=== PATIENT | male | born 1970 | race Caucasian/White ===

== ENCOUNTER 2022-01-05 00:53 | Inpatient (IN) ==
[2022-01-05] MEDS ORDERED: ASPIRIN CHEW 324 MG PO STA (01:11)
[2022-01-05] MEDS ORDERED: NITROGLYCERIN SL 0.4 MG/TAB TAB SL PRN ×2 (01:11→03:18)
[2022-01-05] MEDS ORDERED: ONDANSETRON INJ 2 MG/ML 2 ML VIAL IV STA (01:11)
--- NOTE | 2022-01-05 01:15 | Emergency Department Note ---
History of Present Illness General Chief complaint: Chest Pain Stated complaint: CHEST PAIN, PAIN IN ARMS AND NECK Time Seen by Provider: 01/05/22 01:04 History of Present Illness Maximum Pain Intensity: 7 This 51-year-old that smokes presents to the ER complaining of chest pain that became nauseous and diaphoretic with the pain Location: Chest jaw neck and arms Quality: Pressure Severity: Moderate Duration: Past few days Timing: Started few days ago Context: Symptoms became persistent today and patient came in Modifying factors: better with rest; worse with activity No prior stress test or echo. He has had SVT with ablation in the past. Nothing recently. He smokes. No leg pain or swelling. Patient denies abdominal pain, leg pain or swelling, flulike illness. Home Medications Medication Instructions Recorded Confirmed Type diphenhydramine HCl 25 mg capsule 25 mg PO DIRECTED PRN 01/05/22 01/05/22 History (Benadryl) Allergies Allergy/AdvReac Type Severity Reaction Status Date / Time pollen extracts Allergy Intermediate SNEEZING, Verified 01/05/22 01:24 CONGESTION Past Med/Surg History Medical History SVT (supraventricular tachycardia) Surgical History (Updated 01/05/22 @ 01:14 by Jihan Good PA-C) No pertinent past surgical history Social History Smoking Status: Current every day smoker Tobacco Type: Cigarettes Preferred Language: Greenlandic Feels Safe at Home: Yes Review of Systems A total of 10 systems reviewed and were otherwise negative Physical Exam Vital Signs Vital Signs - 24 hr 01/05/22 00:56 01/05/22 01:13 01/05/22 01:14 Temperature 36.8 C Temperature Source Temporal Artery Scan Pulse Rate 68 77 Pulse Rate [Apical] 68 Pulse Rhythm Regular Pulse Rhythm [Apical] Regular Pulse Strength [Apical] Normal Respiratory Rate 18 18 18 Respiratory Effort / Characteristics Non-Labored Non-Labored Spontaneous Respiratory Depth Normal Normal Respiratory Pattern Regular Regular Blood Pressure 167/109 H Blood Pressure [Right Arm] 179/112 H Blood Pressure Mean 128 Blood Pressure Mean [Right Arm] 134 Blood Pressure Position Lying Blood Pressure Position [Right Arm] Semi-fowlers Pulse Oximetry 98 97 96 Oxygen Delivery Method Room Air Room Air Room Air Oxygen Flow Rate 0 Sepsis Recent Fever Within 48 Hours No Sepsis New/Unexplained Change in Mental Status No Sepsis Action Taken by Nursing No Action Required VITALS: Vitals are noted on the nurse's note and reviewed by myself. Vital signs hypertensive GENERAL: Anxious appearing male, in no acute distress, nondiaphoretic, well- developed well-nourished. SKIN: The skin was without rashes, erythema, edema, or bruising. There is no tenting of the skin. Capillary reflex less than 2 seconds. HEAD: Normocephalic atraumatic. EARS: External auditory canals clear, EYES: Pupils equal round and reactive to light and accommodation. Conjunctivae without injection, sclerae without icterus. Extraocular movements intact. NOSE: Patent, turbinates without inflammation or discharge. MOUTH: Mucous membranes moist. Pharynx without erythema or exudate. Uvula midline. Airway patent. Tongue does not deviate. NECK: Supple without nuchal rigidity. No lymphadenopathy. No thyromegaly. Cervical spine is nontender. No JVD. HEART: Regular rate and rhythm LUNGS: Clear to auscultation bilaterally without wheezes, rales or rhonchi. No retractions or accessory muscle use. ABDOMEN: Positive bowel sounds x 4. Normal tympanic percussion. Soft, nontender, without masses or organomegaly. Christensen sign negative. No guarding or rebound tenderness. No CVA tenderness MUSCULOSKELETAL: No muscle atrophy, erythema, or edema noted. NEURO: Patient was alert and oriented to person place and time. Normal sensation to light and sharp touch. No focal neurological deficits. Course Administered Medications Nitroglycerin (Nitroglycerin Sl 0.4 Mg/Tab Tab) 0.4 mg SL UD PRN PRN Reason: Chest Pain Stop: 02/04/22 01:10 Last Admin: 01/05/22 01:24 Dose: 0.4 mg Documented by: [id number] Discontinued Medications Aspirin (Aspirin Chew 324 Mg) 324 mg PO NOW STA Stop: 01/05/22 01:12 Last Admin: 01/05/22 01:20 Dose: 324 mg Documented by: [id number] Nitroglycerin (Nitroglycerin Sl 0.4 Mg/Tab Tab) 0.4 mg SL NOW STA Stop: 01/05/22 01:37 Last Admin: 01/05/22 01:42 Dose: 0.4 mg Documented by: [id number] Nitroglycerin (Nitroglycerin 2% Ointment 30gm Tube) 1 inch EXT NOW ONE Stop: 01/05/22 02:14 Last Admin: 01/05/22 02:25 Dose: 1 inch Documented by: [id number] Ondansetron HCl (Ondansetron Inj 2 Mg/Ml 2 Ml Vial) 4 mg IV NOW STA Stop: 01/05/22 01:12 Last Admin: 01/05/22 01:21 Dose: 4 mg Documented by: [id number] Critical Care Time I have personally spent 35 minutes of critical care time in the direct management of this patient. This includes bedside care, interpretation of diagnostic studies, and testing, discussion with consultants, patient, and family members, and other required patient management activities. This 35 minutes is in excess of all separately billable procedures. Medical Decision Making Medical Records Attestation: I reviewed the patient's medical records. Home Medications Current Medication List: was personally reviewed by me Laboratory Data Attestation: I reviewed the patient's lab results. Result diagrams: 01/05/22 01:10 01/05/22 01:10 Lab Results 01/05/22 01/05/22 01/05/22 Range/Units 01:10 01:10 02:27 WBC 9.68 (4.8-10.8) K/uL RBC 4.97 (4.7-6.1) M/uL Hgb 15.2 (14.0-18.0) g/dL Hct 43.1 (42-52) % MCV 86.7 (80-100) fL MCH 30.6 (25-34) pg MCHC 35.3 (32-36) g/dL RDW Std Deviation 39.2 (36.4-46.3) fL RDW Coeff of Saige 12.4 (11.5-14.5) % Plt Count 249 (130-400) K/uL MPV 10.1 (7.4-10.4) fL Immature Gran % (Auto) 0.1 % Neut % (Auto) 53.8 % Lymph % (Auto) 29.6 % Graves % (Auto) 12.0 % Eos % (Auto) 3.9 % Baso % (Auto) 0.6 % Neut # (Auto) 5.20 (1.4-6.5) K/uL Lymph # (Auto) 2.87 (1.2-3.4) K/uL Graves # (Auto) 1.16 H (0.11-0.59) K/uL Eos # (Auto) 0.38 (0-0.5) K/uL Baso # (Auto) 0.06 (0-0.2) K/uL Immature Gran # (Auto) 0.01 (0.00-0.02) K/uL Sodium 139 (136-145) mmol/L Potassium TNP Chloride 108 H (98-107) mmol/L Carbon Dioxide 25 (21-32) mmol/L Anion Gap 6 (3-11) BUN 17 (6-23) mg/dl Creatinine 1.08 (0.6-1.4) mg/dl Est Cr Clr Drug Dosing 97.6 ml/min Est GFR ( Amer) 92.3 ml/min Est GFR (Non-Af Amer) 79.6 ml/min BUN/Creatinine Ratio 15.7 (10-20) Glucose 109 H (70-99(Fasting)) mg/dl Calcium 8.8 (8.5-10.1) mg/dl Total Bilirubin 0.7 (0.2-1.0) mg/dl AST TNP ALT 30 (7-52) U/L Alkaline Phosphatase 53 (34-104) U/L Troponin I High Sens 216.3 H* (0-20) pg/ml Total Protein 7.3 (6.0-8.3) gm/dl Albumin 4.3 (3.4-5.0) gm/dl Globulin 3.0 (2.5-4.0) gm/dl Albumin/Globulin Ratio 1.4 (0.9-2) Lipase 49 (11-82) U/L SARS-CoV-2, RNA, NAAT NEGATIVE (NEGATIVE) Imaging Data Attestation: I personally reviewed and interpreted this imaging study as follows: MDM Narrative Prior records/ancillary studies reviewed. Triage Nursing notes reviewed. Additional history obtained from nursing. The patient's history was concerning for chest pain. Differential diagnosis: Etiologies such as cardiac ischemia, aortic dissection, pulmonary embolism, pneumonia, pneumothorax, musculoskeletal, infections, pericarditis, myocarditis, esophageal rupture, gastrointestinal, as well as others were entertained. Physical examination: As above. ER treatment provided: An order was placed for continuous cardiac monitoring. The monitor shows a rate of 60-100 with a sinus rhythm. Aspirin nitro Zofran heparin, Nitropaste On reassessment the patient felt better. Diagnostic interpretation by me: The electrocardiogram was ordered for chest pain EKG: Normal sinus, T wave inversion in aVL, rate of 71. Impression normal sinus rhythm with T wave inversion aVL interpreted by myself I think arrhythmia is unlikely. EKG shows normal sinus rhythm with no interval abnormalities such as QT prolongation or WPW. There are no findings to suggest Brugada syndrome. Cardiac monitoring in the emergency department reveals no tachycardic or bradycardic dysrhythmia. Hypertrophic cardiomyopathy was considered but there are no clear historical elements pointing toward this. EKG is not suggestive. The QRS voltage is not extremely large and there are no suggestive Q waves. The labs revealed + trop, repeat ordered Imaging studies: Chest x-ray with no acute consolidation, pneumothorax or free air per my interpretation HEART SCORE: Hx: high/mod/low suspicion: 2 ECG: ST depression/nonspecific changes/normal: 1 Age: Greater than 65/45-64/less than 45: 1 Risk factors: (Hypertension, hyperlipidemia, diabetes, coronary disease, tobacco use, cocaine use): 1 Troponin: Greater than 2 times normal limits/1-2 times normal limits/normal: 2 Total: 7 Consultation: A consultation was placed with the hospitalist. The case was discussed and diagnostics were reviewed. The patient was evaluated in the ER for further treatment. Exam and history seem consistent with NSTEMI. EKGs were repeated x3. No evolving ST elevation MO. Patient's had no recent trauma. No history of GI bleeding. Heparin was ordered. Patient is agreeable. Medicine was consulted. Patient was admitted to the medical service. By the evaluation outlined above emergent etiologies such as aortic dissection, pulmonary embolism, pneumonia, pneumothorax, infections, pericarditis, myocarditis, gastrointestinal, as well as others were deemed relatively unlikely. The pt informed about the findings as listed above. All questions were answered and pleased with the treatment. The chart was completed utilizing [employer] voice recognition software. Grammatical errors, random word insertions, pronoun errors, and incomplete sentences are an occassional consequence of this system due to software limitations, ambient noise, and hardware issues. Any formal questions or concerns about the content, text, or information contained within the body of this dictation should be directly addressed to the physician retail event assistant for clarification. Impression & Plan Non-ST elevation MO (NSTEMI) Discharge Plan Visit Data Chief Complaint: Chest Pain Stated Complaint: CHEST PAIN, PAIN IN ARMS AND NECK ED Provider: Nicole Marino ED Midlevel Provider: Jihan Good Discharge Problem: Non-ST elevation MO (NSTEMI) Patient Disposition: Admitted As Inpatient Condition: Good Forms Stand Alone Forms: Quid Prescriptions Prescriptions: No Action diphenhydramine HCl [Benadryl] 25 mg Capsule 25 mg PO DIRECTED PRN (Reason: Allergy Symptoms) RF: 0 Referrals Referrals: PCP,NO [Primary Care Provider] -
[2022-01-05 01:25] LABS: Basophils # (auto) 0.06 K/uL (0-0.2); Basophils % (auto) 0.6 %; Eosinophils # (auto) 0.38 K/uL (0-0.5); Eosinophils % (auto) 3.9 %; Hematocrit (blood only) 43.1 % (42-52); Hemoglobin 15.2 g/dL (14.0-18.0); Immature Granulocytes # (auto) 0.01 K/uL (0.00-0.02); Immature Granulocytes % (auto) 0.1 %; Lymphocytes # (auto) 2.87 K/uL (1.2-3.4); Lymphocytes % (auto) 29.6 %; Mean Corpuscular Hemoglobin 30.6 pg (25-34); Mean Corpuscular Hgb Conc 35.3 g/dL (32-36); Mean Corpuscular Volume 86.7 fL (80-100); Mean Platelet Volume 10.1 fL (7.4-10.4); Monocytes # (auto) 1.16 K/uL (0.11-0.59); Neutrophils % (auto) 53.8 %; Platelet Count 249 K/uL (130-400); RDW Coefficient of Variation 12.4 % (11.5-14.5); RDW Standard Deviation 39.2 fL (36.4-46.3); Red Blood Count 4.97 M/uL (4.7-6.1); White Blood Count 9.68 K/uL (4.8-10.8)
[2022-01-05] MEDS ORDERED: NITROGLYCERIN SL 0.4 MG/TAB TAB SL STA (01:36)
[2022-01-05 02:07] LABS: Troponin I High Sensitivity 216.3 pg/ml (0-20)
[2022-01-05] MEDS ORDERED: NITROGLYCERIN 2% OINTMENT 30GM TUBE EXT ONE (02:13)
[2022-01-05 02:18] LABS: Alanine Aminotransferase 30 U/L (7-52); Albumin Globulin Ratio 1.4 (0.9-2); Albumin Level 4.3 gm/dl (3.4-5.0); Alkaline Phosphatase 53 U/L (34-104); Anion Gap 6 (3-11); BUN Creatinine Ratio 15.7 (10-20); Bilirubin,Total 0.7 mg/dl (0.2-1.0); Blood Urea Nitrogen 17 mg/dl (6-23); Calcium 8.8 mg/dl (8.5-10.1); Carbon Dioxide 25 mmol/L (21-32); Chloride 108 mmol/L (98-107); Creatinine Clr Calc Pharmacy 97.6 ml/min; Est GFR (African American) 92.3 ml/min; Est GFR (Non-African American) 79.6 ml/min; Glucose 109 mg/dl (70-99(Fasting)); Lipase 49 U/L (11-82); Sodium 139 mmol/L (136-145); Total Protein 7.3 gm/dl (6.0-8.3)
[2022-01-05] MEDS ORDERED: Heparin IV Adult Wt-Based Standard WITH Bolus Protocol IV STA (02:26)
[2022-01-05] MEDS ORDERED: METOPROLOL TARTRATE 25 MG TAB PO STA (02:37)
[2022-01-05] MEDS ORDERED: HEPARIN SOD (PORCINE) 1000 UNIT/ML IV ONE (02:41)
[2022-01-05] MEDS ORDERED: HEPARIN SODIUM/DEXTROSE 25,000 UNITS/500 ML BAG IV SCH (02:45)
[2022-01-05 02:59] LABS: INR 1.1 (0.9-1.1); Partial Thromboplastin Ratio 0.9; Partial Thromboplastin Time 24.7 Seconds (21.0-31.0); Prothrombin Time 11.2 Seconds (9.0-12.0)
[2022-01-05 03:00] LABS: Magnesium 2.3 mg/dl (1.7-2.4); Potassium 3.6 mmol/L (3.5-5.1)
[2022-01-05] MEDS ORDERED: LORazepam 2 MG/1 ML VIAL IV STA (03:09)
[2022-01-05] MEDS ORDERED: SIMVASTATIN 20 MG TAB PO STA (03:10)
--- NOTE | 2022-01-05 03:10 | History & Physical Report ---
Date of Service January 05, 2022 Assessment & Plan (1) Non-ST elevation IA (NSTEMI): Plan: Hypertension secondary to above, anxiety contributory SVT status post ablation Hyperlipidemia, medication noncompliance Ongoing tobacco abuse PCU Aspirin, statin for CAD prevention Initiate beta-lizet for NSTEMI and BP control Continue IV heparin initiated at the ER Anxiolytic as needed TTE, cardiology consult Re: NSTEMI N.p.o. until patient seen by Cardiology in a.m. in anticipation of procedure Trend troponin Update lipid profile Nicotine patch as needed DVT prophylaxis. IV heparin Full code Text document was generated using [employer] voice recognition software. It may contain grammatical or spelling errors. Kindly contact undersigned for clarification of any documentation item in question. History of Present Illness Chief Complaint: Chest pain Primary Care Provider: NO PCP (Patient is a former patient at [facility] but is not interested in returning to clinic.) History obtained from patient and records. Medical history significant for SVT status post ablation, hyperlipidemia, anxie ty disorder, ongoing tobacco abuse. 5 days history of intermittent achy chest pain with radiation to be neck, both arms, shoulder without other symptoms. Episode possibly similar to SVT attack which resulted in ablation at [facility] 5 years ago. Patient first noticed chest discomfort while riding his motorcycle 4 days ago. Discomfort went away after patient slept. Patient was chest pain-free for about 2 days before discomfort recurred. Patient admits to more stress than usual at work and at home. Patient has not been compliant with aspirin and statin medications because he did not have any doctor to refill prescription. Chest pain improved with aspirin and nitroglycerin administration at the ER. IV heparin initiated at the ER. 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 Allergies Allergy/AdvReac Type Severity Reaction Status Date / Time pollen extracts Allergy Intermediate SNEEZING, Verified 01/05/22 01:24 CONGESTION Home Medications Medication Instructions Recorded Confirmed Type diphenhydramine HCl 25 mg capsule 25 mg PO DIRECTED PRN 01/05/22 01/05/22 History (Benadryl) Past Med/Surg History Medical History SVT (supraventricular tachycardia) Surgical History (Updated 01/05/22 @ 01:14 by Jihan Good PA-C) No pertinent past surgical history Social History Smoking Status: Current every day smoker Tobacco Type: Cigarettes Second Hand Exposure: Yes; Do You Dip or Chew Tobacco: No; Hx Alcohol Use: No Hx Substance Use: No Preferred Language: Thai Vegetable Washer Required: No Beliefs That Will Affect Care: None Current Living Situation: Family Other Information That Helps Us Care for You: No Feels Safe at Home: Yes Assistive Devices: None Review of Systems Review of Systems: As per HPI, all other systems reviewed and negative Physical Exam Physical Exam: GENERAL: uncomfortable, anxious, no respiratory distress SKIN: Normal color, warm HEENT: [place] palpebral conjunctivae, no ptosis, dry buccal mucosa NECK : Supple, no tenderness CHEST : CTA, no tenderness HEART : RRR, no obvious murmurs ABDOMEN: Some distention, nontender EXTREMITIES : No LE swelling/tenderness, no other conspicuous deformities noted NEUROLOGIC : Coherent, no facial asymmetry, no other gross focality Results & Data Results & Data ([facility]) Vital Signs (Past 12 Hours) Vital Signs Temp Pulse Pulse Resp BP BP Pulse Ox 01/05/22 03:07 84 16 160/108 H 98 01/05/22 01:14 68 18 179/112 H 96 01/05/22 01:13 77 18 97 01/05/22 00:56 36.8 C 68 18 167/109 H 98 Laboratory Results Laboratory Results WBC 9.68 K/uL (4.8-10.8) 01/05/22 01:10 RBC 4.97 M/uL (4.7-6.1) 01/05/22 01:10 Hgb 15.2 g/dL (14.0-18.0) 01/05/22 01:10 Hct 43.1 % (42-52) 01/05/22 01:10 MCV 86.7 fL (80-100) 01/05/22 01:10 MCH 30.6 pg (25-34) 01/05/22 01:10 MCHC 35.3 g/dL (32-36) 01/05/22 01:10 RDW Std Deviation 39.2 fL (36.4-46.3) 01/05/22 01:10 RDW Coeff of Saige 12.4 % (11.5-14.5) 01/05/22 01:10 Plt Count 249 K/uL (130-400) 01/05/22 01:10 MPV 10.1 fL (7.4-10.4) 01/05/22 01:10 Immature Gran % (Auto) 0.1 % 01/05/22 01:10 Neut % (Auto) 53.8 % 01/05/22 01:10 Lymph % (Auto) 29.6 % 01/05/22 01:10 Ida % (Auto) 12.0 % 01/05/22 01:10 Eos % (Auto) 3.9 % 01/05/22 01:10 Baso % (Auto) 0.6 % 01/05/22 01:10 Neut # (Auto) 5.20 K/uL (1.4-6.5) 01/05/22 01:10 Lymph # (Auto) 2.87 K/uL (1.2-3.4) 01/05/22 01:10 Ida # (Auto) 1.16 K/uL (0.11-0.59) H 01/05/22 01:10 Eos # (Auto) 0.38 K/uL (0-0.5) 01/05/22 01:10 Baso # (Auto) 0.06 K/uL (0-0.2) 01/05/22 01:10 Immature Gran # (Auto) 0.01 K/uL (0.00-0.02) 01/05/22 01:10 PT 11.2 Seconds (9.0-12.0) 01/05/22 02:23 INR 1.1 (0.9-1.1) 01/05/22 02:23 APTT 24.7 Seconds (21.0-31.0) 01/05/22 02:23 PTT Ratio 0.9 01/05/22 02:23 Sodium 139 mmol/L (136-145) 01/05/22 01:10 Potassium 3.6 mmol/L (3.5-5.1) 01/05/22 02:23 Chloride 108 mmol/L (98-107) H 01/05/22 01:10 Carbon Dioxide 25 mmol/L (21-32) 01/05/22 01:10 Anion Gap 6 (3-11) 01/05/22 01:10 BUN 17 mg/dl (6-23) 01/05/22 01:10 Creatinine 1.08 mg/dl (0.6-1.4) 01/05/22 01:10 Est Cr Clr Drug Dosing 97.6 ml/min 01/05/22 01:10 Est GFR ( Amer) 92.3 ml/min 01/05/22 01:10 Est GFR (Non-Af Amer) 79.6 ml/min 01/05/22 01:10 BUN/Creatinine Ratio 15.7 (10-20) 01/05/22 01:10 Glucose 109 mg/dl (70-99(Fasting)) H 01/05/22 01:10 Calcium 8.8 mg/dl (8.5-10.1) 01/05/22 01:10 Magnesium 2.3 mg/dl (1.7-2.4) 01/05/22 02:23 Total Bilirubin 0.7 mg/dl (0.2-1.0) 01/05/22 01:10 AST 21 U/L (13-39) 01/05/22 02:23 ALT 30 U/L (7-52) 01/05/22 01:10 Alkaline Phosphatase 53 U/L (34-104) 01/05/22 01:10 Troponin I High Sens 216.3 pg/ml (0-20) H* 01/05/22 01:10 Total Protein 7.3 gm/dl (6.0-8.3) 01/05/22 01:10 Albumin 4.3 gm/dl (3.4-5.0) 01/05/22 01:10 Globulin 3.0 gm/dl (2.5-4.0) 01/05/22 01:10 Albumin/Globulin Ratio 1.4 (0.9-2) 01/05/22 01:10 Lipase 49 U/L (11-82) 01/05/22 01:10 SARS-CoV-2, RNA, NAAT NEGATIVE (NEGATIVE) 01/05/22 02:27 Diagnostic Findings Chest x-ray : No congestion, elevated right hemidiaphragm EKG as per my interpretation : Rate 65, NSR, normal axis, no ischemia
[2022-01-05 03:12] LABS: Troponin I High Sensitivity 410.9 pg/ml (0-20)
[2022-01-05] MEDS ORDERED: traMADol HCL 50 MG TABLET PO STA (03:12)
[2022-01-05] MEDS ORDERED: ACETAMINOPHEN 325 MG TAB PO PRN (03:18)
[2022-01-05] MEDS ORDERED: LACTATED RINGER'S 1,000 ML IV ONE (03:18)
[2022-01-05] MEDS ORDERED: MoRPHine SULFATE 4 MG/ML 1 ML CARP\\VIAL IV PRN (03:18)
[2022-01-05] MEDS ORDERED: LORazepam 2 MG/1 ML VIAL IV PRN (03:18)
[2022-01-05] MEDS ORDERED: traMADol HCL 50 MG TABLET PO PRN (03:18)
--- NOTE | 2022-01-05 06:43 | XRay Report ---
XR chest 1V portable CLINICAL HISTORY: Atypical chest pain. COMPARISON STUDY: No previous studies for comparison. FINDINGS: Lung volumes are normal. Lungs are clear. There is no pneumothorax or pleural effusion. Car diac size is normal. Mediastinal contours are normal. There is no evidence for pulmonary edema. IMPRESSION: No acute cardiopulmonary findings. ACT 112: Negative or not required by law. Electronically signed by: Tho Victoria M.D. 01/05/2022 6:41 AM
--- NOTE | 2022-01-05 08:43 | Cardiology Consultation ---
Date of Consultation January 05, 2022 Assessment & Plan (1) Chest pain: (2) Non-ST elevation AK (NSTEMI): (3) Tobacco abuse: (4) Dyslipidemia: Patient with waxing and waning chest pain over the last 5 days with radiation down both arms and to neck, concerning for unstable angina. Risk factors for underlying CAD including family history of CAD, chronic tobacco abuse, and dyslipidemia (not treated). Cardiac enzymes (HS troponin) minimally elevated on arrival. Chest pain resolved with nitro. Echo results are pending. Options discussed in detail including ongoing medical management, stress testing, vs diagnostic cardiac catheterization. Patient is concerned with recurrent issues over several days and wishes for definitive diagnosis. Risks/benefits discussed regarding diagnostic cardiac cath. He is willing to proceed. Remain NPO. Continue IV heparin for now. Cath to be arranged later today with Dr. Preciado. Continue ASA, statin, metoprolol, nitro. Patient to report any new or worsening symptoms. Further recommendations pending review of echo and cath results. Case discussed with Dr. Preciado. Supervising Physician Co-Signing Physician Notes I have seen and examined the patient. I discussed the case with Ms. Ocasio and reviewed the medical record. I agree the best option at this point is to proceed with a cardiac catheterization. I explained the risk, benefit and intent of the procedure to the patient and he is willing to proceed. History of Present Illness Reason for Consultation: Chest pain; Elevated troponin Requesting Physician: Dr. Kim Attending Physician: Dr. Preciado History of Present Illness Patient is a 51 year old male with history of chronic tobacco abuse, dyslipidemia (previously on simvastatin, but has not taken in 1 year), history of SVT s/p ablation approx 5 years ago at [facility]. He denies history of AK, CHF, valvular disease. He began to have waxing/waning chest pain over the last few days. Started on Monday while riding his motorcycle. Thought his arms were 'fatigued' from a long ride. [place] substernal chest tightness/ache radiating into his arms. Symptoms lasted most of Monday evening. He noted pain radiating into his left side of his jaw as well. Symptoms returned again on Monday and Monday, each day lasting several hours. He had episode of nausea with the CP on Monday but no other symptoms. No aggravating or alleviating factors that he could figure or attribute his symptoms. No palpitations. No fever, cough, chills. He reportedly felt well on Monday. Then on Monday, symptoms returned, more severe lasting approx 15 hours. He came to the ER for evaluation. EKG without acute changes. Symptoms resolved with SL Nitro and nitro patch. Initial HS troponin around 200, increasing to 400, and then nearly 3,000 this morning. He has been started on IV heparin, ASA, statin, nitro patch, beta lizet. At time of consult, patient resting in bed comfortably. No recurrent chest pain overnight. He notes ongoing headache this morning since nitro placement. No SOB, no diaphoresis. B/L arm heaviness improved. Allergies Allergy/AdvReac Type Severity Reaction Status Date / Time pollen extracts Allergy Intermediate SNEEZING, Verified 01/05/22 01:24 CONGESTION Home Medications Medication Instructions Recorded Confirmed Type diphenhydramine HCl 25 mg capsule 25 mg PO DIRECTED PRN 01/05/22 01/05/22 History (Benadryl) Patient History Medical History SVT (supraventricular tachycardia) Surgical History (Updated 01/05/22 @ 01:14 by Jihan Good PA-C) No pertinent past surgical history Social History Smoking Status: Current every day smoker Tobacco Type: Cigarettes Second Hand Exposure: Yes; Do You Dip or Chew Tobacco: No; Hx Alcohol Use: No Hx Substance Use: No Preferred Language: Slovenian 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: No Beliefs That Will Affect Care: None marital status: Single Current Living Situation: Family Other Information That Helps Us Care for You: No Feels Safe at Home: Yes Assistive Devices: None Review of Systems Review of Systems: All systems reviewed & are unremarkable except as noted in HPI & below Physical Exam Constitutional: WD/WN, vitals as above Neck: trachea midline, no thyromegaly Respiratory: normal respiratory effort, lungs clear to auscultation Cardiovascular: RRR, no murmur, no edema Gastrointestinal (Abdomen): normal bowel sounds, soft, nontender, no hepatosplenomegaly Skin: no rashes, warm and dry Psychiatric: A+Ox3, euthymic affect Results & Data ([facility]) Vital Signs (Past 12 Hours) Vital Signs Temp Pulse Pulse Resp BP BP Pulse Ox 01/05/22 05:00 69 21 01/05/22 04:30 64 10 L 01/05/22 04:00 59 L 17 142/77 H 01/05/22 03:50 60 16 157/94 H 95 01/05/22 03:48 67 13 157/84 H 01/05/22 03:30 60 21 131/85 01/05/22 03:16 69 22 126/79 01/05/22 03:07 84 16 160/108 H 98 01/05/22 03:00 78 13 01/05/22 02:30 63 17 01/05/22 02:00 67 19 01/05/22 01:30 70 20 01/05/22 01:29 71 19 160/108 H 01/05/22 01:14 68 18 179/112 H 96 01/05/22 01:13 77 18 179/112 H 97 01/05/22 00:56 36.8 C 68 18 167/109 H 98 Pulse Ox 01/05/22 05:00 01/05/22 04:30 01/05/22 04:00 01/05/22 03:50 95 01/05/22 03:48 01/05/22 03:30 01/05/22 03:16 01/05/22 03:07 01/05/22 03:00 01/05/22 02:30 01/05/22 02:00 01/05/22 01:30 01/05/22 01:29 01/05/22 01:14 01/05/22 01:13 01/05/22 00:56 Laboratory Results 01/05/22 01/05/22 01/05/22 Range/Units 02:27 02:23 02:23 WBC (4.8-10.8) K/uL RBC (4.7-6.1) M/uL Hgb (14.0-18.0) g/dL Hct (42-52) % MCV (80-100) fL MCH (25-34) pg MCHC (32-36) g/dL RDW Std Deviation (36.4-46.3) fL RDW Coeff of Saige (11.5-14.5) % Plt Count (130-400) K/uL MPV (7.4-10.4) fL Immature Gran % (Auto) % Neut % (Auto) % Lymph % (Auto) % [place]ether % (Auto) % Eos % (Auto) % Baso % (Auto) % Neut # (Auto) (1.4-6.5) K/uL Lymph # (Auto) (1.2-3.4) K/uL Meriwether # (Auto) (0.11-0.59) K/uL Eos # (Auto) (0-0.5) K/uL Baso # (Auto) (0-0.2) K/uL Immature Gran # (Auto) (0.00-0.02) K/uL PT 11.2 (9.0-12.0) Seconds INR 1.1 (0.9-1.1) APTT 24.7 (21.0-31.0) Seconds PTT Ratio 0.9 Sodium (136-145) mmol/L Potassium 3.6 Chloride (98-107) mmol/L Carbon Dioxide (21-32) mmol/L Anion Gap (3-11) BUN (6-23) mg/dl Creatinine (0.6-1.4) mg/dl Est Cr Clr Drug Dosing ml/min Est GFR ( Amer) ml/min Est GFR (Non-Af Amer) ml/min BUN/Creatinine Ratio (10-20) Glucose (70-99(Fasting)) mg/dl Calcium (8.5-10.1) mg/dl Magnesium 2.3 (1.7-2.4) mg/dl Total Bilirubin (0.2-1.0) mg/dl AST 21 ALT (7-52) U/L Alkaline Phosphatase (34-104) U/L Troponin I High Sens 410.9 H* D (0-20) pg/ml Total Protein (6.0-8.3) gm/dl Albumin (3.4-5.0) gm/dl Globulin (2.5-4.0) gm/dl Albumin/Globulin Ratio (0.9-2) Lipase (11-82) U/L SARS-CoV-2, RNA, NAAT NEGATIVE (NEGATIVE) 01/05/22 01/05/22 Range/Units 01:10 01:10 WBC 9.68 (4.8-10.8) K/uL RBC 4.97 (4.7-6.1) M/uL Hgb 15.2 (14.0-18.0) g/dL Hct 43.1 (42-52) % MCV 86.7 (80-100) fL MCH 30.6 (25-34) pg MCHC 35.3 (32-36) g/dL RDW Std Deviation 39.2 (36.4-46.3) fL RDW Coeff of Saige 12.4 (11.5-14.5) % Plt Count 249 (130-400) K/uL MPV 10.1 (7.4-10.4) fL Immature Gran % (Auto) 0.1 % Neut % (Auto) 53.8 % Lymph % (Auto) 29.6 % [place] % (Auto) 12.0 % Eos % (Auto) 3.9 % Baso % (Auto) 0.6 % Neut # (Auto) 5.20 (1.4-6.5) K/uL Lymph # (Auto) 2.87 (1.2-3.4) K/uL [place]ether # (Auto) 1.16 H (0.11-0.59) K/uL Eos # (Auto) 0.38 (0-0.5) K/uL Baso # (Auto) 0.06 (0-0.2) K/uL Immature Gran # (Auto) 0.01 (0.00-0.02) K/uL PT (9.0-12.0) Seconds INR (0.9-1.1) APTT (21.0-31.0) Seconds PTT Ratio Sodium 139 (136-145) mmol/L Potassium TNP Chloride 108 H (98-107) mmol/L Carbon Dioxide 25 (21-32) mmol/L Anion Gap 6 (3-11) BUN 17 (6-23) mg/dl Creatinine 1.08 (0.6-1.4) mg/dl Est Cr Clr Drug Dosing 97.6 ml/min Est GFR ( Amer) 92.3 ml/min Est GFR (Non-Af Amer) 79.6 ml/min BUN/Creatinine Ratio 15.7 (10-20) Glucose 109 H (70-99(Fasting)) mg/dl Calcium 8.8 (8.5-10.1) mg/dl Magnesium (1.7-2.4) mg/dl Total Bilirubin 0.7 (0.2-1.0) mg/dl AST TNP ALT 30 (7-52) U/L Alkaline Phosphatase 53 (34-104) U/L Troponin I High Sens 216.3 H* (0-20) pg/ml Total Protein 7.3 (6.0-8.3) gm/dl Albumin 4.3 (3.4-5.0) gm/dl Globulin 3.0 (2.5-4.0) gm/dl Albumin/Globulin Ratio 1.4 (0.9-2) Lipase 49 (11-82) U/L SARS-CoV-2, RNA, NAAT (NEGATIVE) Diagnostic Findings EKG on admission: NSR, no acute ischemic changes noted. No prior available for comparison Repeat EKG: NSR T wave inversion in AVL, otherwise no acute changes Chest xray: IMPRESSION: No acute cardiopulmonary findings. Telemetry reviewed: NSR, no arrhythmias Medications Administered Current Inpatient Medications Acetaminophen (Acetaminophen 325 Mg Tab) 650 mg PO Q4H PRN PRN Reason: Pain or Fever Stop: 02/04/22 03:17 Aspirin (Aspirin 81 Mg Ectab) 81 mg PO QAM [facility] Stop: 02/05/22 08:59 Heparin Sodium/Dextrose (Heparin Sodium/Dextrose) 25,000 units in 500 mls @ 30 mls/hr IV .[id number] [facility]; Protocol Stop: 02/04/22 02:44 Last Titration: 01/05/22 07:05 Dose: 1,500 units/hr, 30 mls/hr Documented by: Lactated Ringer's (Lr) 1,000 mls @ 50 mls/hr IV .Q20H ONE Stop: 01/05/22 23:17 Last Admin: 01/05/22 04:13 Dose: 50 mls/hr Documented by: Lorazepam (Lorazepam 2 Mg/1 Ml Vial) 0.5 mg IV Q4H PRN PRN Reason: Anxiety Stop: 02/04/22 03:17 Metoprolol Tartrate (Metoprolol Tartrate 25 Mg Tab) 12.5 mg PO BID UYEN Stop: 02/04/22 20:59 Morphine Sulfate (Morphine Sulfate 4 Mg/Ml 1 Ml Carp\Vial) 4 mg IV Q4H PRN PRN Reason: Pain Stop: 01/19/22 03:17 Nitroglycerin (Nitroglycerin Sl 0.4 Mg/Tab Tab) 0.4 mg SL UD PRN PRN Reason: Chest Pain Stop: 02/04/22 03:17 Simvastatin (Simvastatin 20 Mg Tab) 20 mg PO DAILY UYEN Stop: 02/05/22 08:59 Tramadol HCl (Tramadol Hcl 50 Mg Tablet) 25 - 50 mg PO Q4H PRN PRN Reason: Pain Stop: 02/04/22 03:17
[2022-01-05 09:52] LABS: Chol HDL Ratio 4.7 (0-5)
[2022-01-05 10:15] LABS: Partial Thromboplastin Time 83.3 Seconds (21.0-31.0)
[2022-01-05] MEDS ORDERED: niCARdipine HCL INJ 2.5 MG/ML 10 ML AMP ONE (12:51)
[2022-01-05] MEDS ORDERED: fentaNYL citrate 100 MCG/2 ML VIAL ONE (12:51)
[2022-01-05] MEDS ORDERED: HEPARIN (PORCINE) 1000 UNIT/ML 10 ML (CATH LAB USE ONLY) ONE (12:51)
[2022-01-05] MEDS ORDERED: MIDAZOLAM HCL 1 MG/ML 2ML VIAL ONE (12:51)
[2022-01-05] MEDS ORDERED: NITROGLYCERIN/D5W 100MCG/ML 20ML SYR ONE (12:52)
--- NOTE | 2022-01-05 13:08 | History & Physical Bridge Note ---
Date of Service January 05, 2022 History & Physical Bridge Note I have examined the patient, reviewed the History & Physical and in the interval since the performance of the History & Physical I have noted the following changes of clinical significance: no changes noted I have explained the risk, benefit and intent of the procedure to the patient and he is willing to proceed.
--- NOTE | 2022-01-05 13:52 | Electrocardiogram Report ---
Test Reason : Blood Pressure : / mmHG Vent. Rate : 057 BPM Atrial Rate : 057 BPM P-R Int : 112 ms QRS Dur : 096 ms QT Int : 440 ms P-R-T Axes : 039 019 072 degrees QTc Int : 428 ms Sinus bradycardia Otherwise normal ECG When compared with ECG of 05-JAN-2022 01:33, (unconfirmed) No significant change was found Confirmed by Joshua Chaves ([id number]) on 01/05/2022 1:52:08 PM Referred By: REFERRED SELF Confirmed By:Joshua Chaves
--- NOTE | 2022-01-05 13:52 | Electrocardiogram Report ---
Test Reason : Blood Pressure : / mmHG Vent. Rate : 065 BPM Atrial Rate : 065 BPM P-R Int : 114 ms QRS Dur : 096 ms QT Int : 416 ms P-R-T Axes : 034 007 066 degrees QTc Int : 432 ms Poor data quality, interpretation may be adversely affected Normal sinus rhythm Normal ECG When compared with ECG of 05-JAN-2022 00:57, (unconfirmed) No significant change Confirmed by Joshua Chaves ([id number]) on 01/05/2022 1:52:00 PM Referred By: REFERRED SELF Confirmed By:Joshua Chaves
--- NOTE | 2022-01-05 13:52 | Electrocardiogram Report ---
Test Reason : Blood Pressure : / mmHG Vent. Rate : 071 BPM Atrial Rate : 071 BPM P-R Int : 132 ms QRS Dur : 098 ms QT Int : 412 ms P-R-T Axes : 051 051 074 degrees QTc Int : 447 ms Poor data quality, interpretation may be adversely affected Normal sinus rhythm Normal ECG No previous ECGs available Confirmed by Joshua Chaves ([id number]) on 01/05/2022 1:51:34 PM Referred By: REFERRED SELF Confirmed By:Joshua Chaves
--- NOTE | 2022-01-05 13:55 | Cardiac Catheterization ---
Date of Service January 05, 2022 Cardiac Cath Report Cardiac Cath Report Procedure: 1. Left heart catheterization 2. Coronary angiography 3. Left ventriculogram History: This is a 51-year-old male patient who presents with chest and arm discomfort concerning for crescendo angina. He also had a bump in his cardiac troponins. He is referred for cardiac catheterization. Procedure summary: After informed consent was obtained patient was prepped and draped in the usual manner for a right radial approach. Using a retrograde Salinger technique the radial artery was accessed. Preformed 5 [place] diagnostic catheters were utilized for the coronary angiograms. A 5 [place] pigtail catheter was utilized for the left heart pressures and left ventriculogram. Following the procedure the patient was returned to the holding area the Psychotherapist Counselor in stable condition. ACC data: Start time 1327 End time 1342 Opening aortic pressure 117/88 LV pressure 128/15 Closing aortic pressure 121/83 Sedation 1 mg intravenous Versed IV fluid 52 cc normal saline Contrast 70 cc Optiray Fluoroscopy time 2.8 minutes Radiation 682 mGy DAP 67.23 Rosado per centimeter squared Right dominant system AUC score 9 Coronary angiography: Selective injections of the left coronary artery revealed the left main trunk to be widely patent. The LAD extends around to the apex of the heart. Gives off a single large first diagonal branch. The LAD system is smooth in appearance widely patent and within normal limits. The left circumflex artery consists of 2 large posterior lateral marginal branches. Left circumflex artery is smooth in appearance widely patent and within normal limits. Injections in the right coronary artery reveal it to be dominant. The right coronary artery is smooth in appearance widely patent and within normal limits. Left ventriculogram: The left ventricle is of normal size with normal systolic function. The mitral valve is competent. The aortic root and ascending aorta have normal diameter and morphology. Summary: Widely patent and normal coronary arteries and normal LV function Recommendations: Continued risk factor modification.
[2022-01-05] MEDS: SODIUM CHLORIDE 0.9% 1000ML 1,000 ML IV SCH (14:43)
[2022-01-05] MEDS: NICOTINE 14 MG/24 HR PATCH TD SCH (15:02)
[2022-01-05 16:43] LABS: Partial Thromboplastin Time 26.5 Seconds (21.0-31.0)
[2022-01-05] MEDS: METOPROLOL TARTRATE 25 MG TAB PO SCH (20:56)
[2022-01-06] MEDS: SODIUM CHLORIDE 0.9% 1000ML 1,000 ML IV SCH (01:00)
[2022-01-06 05:44] LABS: Basophils # (auto) 0.03 K/uL (0-0.2); Basophils % (auto) 0.4 %; Eosinophils # (auto) 0.26 K/uL (0-0.5); Eosinophils % (auto) 3.5 %; Hematocrit (blood only) 40.6 % (42-52); Hemoglobin 13.7 g/dL (14.0-18.0); Immature Granulocytes # (auto) 0.01 K/uL (0.00-0.02); Immature Granulocytes % (auto) 0.1 %; Lymphocytes # (auto) 2.05 K/uL (1.2-3.4); Lymphocytes % (auto) 27.5 %; Mean Corpuscular Hemoglobin 29.4 pg (25-34); Mean Corpuscular Hgb Conc 33.7 g/dL (32-36); Mean Corpuscular Volume 87.1 fL (80-100); Mean Platelet Volume 9.9 fL (7.4-10.4); Monocytes # (auto) 0.67 K/uL (0.11-0.59); Neutrophils # (auto) 4.43 K/uL (1.4-6.5); Neutrophils % (auto) 59.5 %; Platelet Count 202 K/uL (130-400); RDW Coefficient of Variation 12.4 % (11.5-14.5); RDW Standard Deviation 39.4 fL (36.4-46.3); Red Blood Count 4.66 M/uL (4.7-6.1); White Blood Count 7.45 K/uL (4.8-10.8)
[2022-01-06 06:15] LABS: BUN Creatinine Ratio 13.8 (10-20); Calcium 8.5 mg/dl (8.5-10.1); Creatinine Clr Calc Pharmacy 131.8 ml/min; Est GFR (African American) 120.7 ml/min; Est GFR (Non-African American) 104.2 ml/min; Magnesium 2.2 mg/dl (1.7-2.4); Potassium 3.8 mmol/L (3.5-5.1)
[2022-01-06] MEDS ORDERED: ASPIRIN 81 MG ECTAB PO SCH (09:00)
[2022-01-06] MEDS ORDERED: SIMVASTATIN 20 MG TAB PO SCH (09:00)
[2022-01-06] MEDS: NICOTINE 14 MG/24 HR PATCH TD SCH (09:09)
[2022-01-06] MEDS: METOPROLOL TARTRATE 25 MG TAB PO SCH (09:09)
--- NOTE | 2022-01-06 11:14 | Hospitalist Progress Note ---
Date of Service January 06, 2022 Assessment & Plan (1) Chest pain: Plan: Admitted with chest pain with exertion and at times with rest Cardiac enzymes were minimally elevated without any EKG change Underwent cardiac cath with clean coronaries Appreciate cardiology input and recommendation To be discharged home this morning (2) Non-ST elevation OR (NSTEMI): Plan: Hypertension secondary to above, anxiety contributory SVT status post ablation Hyperlipidemia, medication noncompliance Ongoing tobacco abuse NSTEMI has been ruled out as there is no echocardiographic abnormality and/or EKG abnormalities with negative cardiac cath Troponin elevation is secondary to myocardial stress secondary to hypertension (3) Dyslipidemia: Plan: We will start a statin (4) Tobacco abuse: Plan: Was given nicotine patch (5) Hypertension: Plan: We will add a small dose of beta-lizet Plan: Was advised to keep appointment with healthcare providers Take medications as advised Admission and Anticipated Discharge Date Admission Date: January 05, 2022 Subjective 01/06/2022 The patient was seen and examined in ICU Is a status post cardiac cath which came out to be negative for any disease He denies any more chest pain or palpitation Review of Systems Review of Systems: All systems reviewed and are unremarkable except as noted below Cardiovascular: Additional Comments: No chest pain and/or palpitation Physical Exam Physical Exam: Standing beside the bed without any acute distress and ready to go Constitutional: well developed, well nourished and + obese; not ill appearing Eyes: PERRL, conjunctivae normal, anicteric sclerae Neck: trachea midline, no thyromegaly Respiratory: no respiratory distress Auscultation: lungs clear to auscultation bilaterally Cardiovascular: Rate/Rhythm: regular rate and regular rhythm; not tachycardic Heart Sounds: normal S1 and normal S2; no murmur Extremities: no edema Gastrointestinal (Abdomen): Inspection/Auscultation: normal bowel sounds; abdomen not distended Percussion/Palpation: abdomen soft; abdomen nontender Musculoskeletal: No acute arthritis in any joint Neurologic: patellar DTR's 2+ bilat, sensation intact Results & Data Results & Data ([facility]) Vital Signs (Past 12 Hours) Vital Signs Temp Pulse Pulse Resp BP Pulse Ox 01/06/22 04:00 37.0 C 85 18 129/80 94 01/06/22 00:00 71 01/05/22 23:34 37.0 C 65 16 115/72 95 Laboratory Results Short CBC 05/26/22 Range/Units 05:29 WBC 7.45 (4.8-10.8) K/uL Hgb 13.7 L (14.0-18.0) g/dL Hct 40.6 L (42-52) % Plt Count 202 (130-400) K/uL BMP 01/06/22 05:29 Sodium 141 Potassium 3.8 Chloride 110 H Carbon Dioxide 26 BUN 11 Creatinine 0.80 Glucose 97 Calcium 8.5
--- NOTE | 2022-01-06 17:37 | Discharge Summary ---
Date of Service January 06, 2022 Admission HPI Per Admitting Provider History obtained from patient and records. Medical history significant for SVT status post ablation, hyperlipidemia, anxiety disorder, ongoing tobacco abuse. 5 days history of intermittent achy chest pain with radiation to be neck, both arms, shoulder without other symptoms. Episode possibly similar to SVT attack which resulted in ablation at [facility] 5 years ago. Patient first noticed chest discomfort while riding his motorcycle 4 days ago. Discomfort went away after patient slept. Patient was chest pain-free for about 2 days before discomfort recurred. Patient admits to more stress than usual at work and at home. Patient has not been compliant with aspirin and statin medications because he did not have any doctor to refill prescription. Chest pain improved with aspirin and nitroglycerin administration at the ER. IV heparin initiated at the ER. 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 Admission Exam Per Admitting Provider Physical Exam: GENERAL: uncomfortable, anxious, no respiratory distress SKIN: Normal color, warm HEENT: [place] palpebral conjunctivae, no ptosis, dry buccal mucosa NECK : Supple, no tenderness CHEST : CTA, no tenderness HEART : RRR, no obvious murmurs ABDOMEN: Some distention, nontender EXTREMITIES : No LE swelling/tenderness, no other conspicuous deformities noted NEUROLOGIC : Coherent, no facial asymmetry, no other gross focality Principal Diagnosis Atypical Chest pain,Normal Coronary Angiogram and normal LV function,HTN,Anxiety Discharge Exam Standing beside the bed without any acute distress and ready to go Constitutional well developed, well nourished and + obese; not ill appearing Eyes PERRL, conjunctivae normal, anicteric sclerae Neck trachea midline, no thyromegaly Respiratory no respiratory distress Auscultation: lungs clear to auscultation bilaterally Cardiovascular Rate/Rhythm: regular rate and regular rhythm; not tachycardic Heart Sounds: normal S1 and normal S2; no murmur Extremities: no edema Gastrointestinal (Abdomen) Inspection/Auscultation: normal bowel sounds; abdomen not distended Percussion/Palpation: abdomen soft; abdomen nontender Neurologic patellar DTR's 2+ bilat, sensation intact Discharge Data Allergies Allergy/AdvReac Type Severity Reaction Status Date / Time pollen extracts Allergy Intermediate SNEEZING, Verified 01/05/22 01:24 CONGESTION Consultations 01/05/22 02:26 ED Decision to Admit Stat 01/05/22 03:58 Consult Cardiology Routine Procedures Performed Operation Date: 01/05/22 13:00 Actual Procedures s Cineradiography w/Routine Exam - Brien Preciado, DO p Cath, Left with Cors and Vent - Brien Preciado, DO Ordered Studies 01/05/22 11:49 CL Cath Imgs for PACS use only Routine Hospital Course (1) Chest pain: Admitted with chest pain with exertion and at times with rest Cardiac enzymes were minimally elevated without any EKG change Underwent cardiac cath with clean coronaries Appreciate cardiology input and recommendation To be discharged home this morning (2) Non-ST elevation GA (NSTEMI): Hypertension secondary to above, anxiety contributory SVT status post ablation Hyperlipidemia, medication noncompliance Ongoing tobacco abuse NSTEMI has been ruled out as there is no echocardiographic abnormality and/or EKG abnormalities with negative cardiac cath Troponin elevation is secondary to myocardial stress secondary to hypertension (3) Dyslipidemia: We will start a statin (4) Tobacco abuse: Was given nicotine patch (5) Hypertension: We will add a small dose of beta-lizet Was advised to keep appointment with healthcare providers Take medications as advised Total Time Total Time Spent Total Time Spent (In Minutes): 35 minutes Discharge Plan Discharge Items Patient Disposition: Home - Self-Care Reason For Visit: NSTEMI Discharge Diagnosis: Atypical Chest pain,Normal Coronary Angiogram and normal LV function,HTN,Anxiety Condition on Discharge: Good Activity: Resume your previous activity Non-emergency contact: Primary Care Provider Call non-emergency contact if: you have any medication questions and your symptoms worsen Follow-up/Referrals: Miles Steel MD [Outside Practitioners] - (Date & Time 01/13/2022 10:20 AM Provider Miles Steel MD Department [facility] ) Diet: Heart Healthy Addtl Attending Provider Instructions: ACTIVITY RECOMMENDATIONS: Excess manipulation of the wrist should be avoided for the next 24-48 hours. * No lifting over 2 pounds (approximately a 1/2 gallon of milk) with the utilized arm for 24 hours. * No strenuous activity such as bowling or tennis for 3 days. * Keep the site of the procedure covered with a bandage for 24 hours. *You may shower the day after the procedure. Do not take a tub bath or submerge the puncture site in water for the next 3 days. *Do not operate any motorized equipment for 3 days. SPECIAL CARE INSTRUCTIONS: The site may be slightly bruised and sore following your procedure. Should any of the following occur, contact the Dr. who performed your procedure. 1. Redness/inflammation, swelling, chills, or fever, or colored drainage at procedure site within 3-7 days after your procedure. 2. Coldness, discoloration, ongoing numbness, severe pain, or swelling. Expect mild tingling of hand and tenderness at the puncture site for up to three days. If this persists beyond three days, or other symptoms develop, notify the Dr. who performed your procedure. BLEEDING: If the procedure site on your wrist begins to bleed, do not panic 1. Place 1 or 2 fingers firmly just slightly above the insertion site to stop the bleeding. You may be able to feel your pulse as you hold pressure. 2. Lift your finger after 5 minutes to see if the bleeding has stopped. 3. Once the bleeding has stopped, gently wipe the wrist area clean with a bandage. * If the bleeding from your wrist does not stop after 10 minutes, or if there is a large amount of bleeding or spurting, call 911 (do not drive yourself to the hospital). SKIN IRRITATION: * You may experience some redness and/or swelling in the area where radiation was administered. If any skin irritation occurs, please contact your family physician. FOLLOW UP VISIT: Keep any scheduled doctor appointments. Pending Studies at Discharge: No Stand-Alone Forms: My [facility], Smoking Cessation Medications and DC Order Prescriptions: New aspirin 81 mg Tablet,Delayed Release (Dr/Ec) 81 mg PO QAM 30 Days Qty: 30 RF: 0 simvastatin 20 mg Tablet 20 mg PO DAILY 30 Days Qty: 30 RF: 0 nicotine 7 mg/24 hr Patch 24 Hour 14 mg transdermal QAM 30 Days Qty: 30 RF: 0 metoprolol tartrate 25 mg Tablet 12.5 mg PO BID 30 Days Qty: 30 RF: 0 Continued diphenhydramine HCl [Benadryl] 25 mg Capsule 25 mg PO DIRECTED PRN (Reason: Allergy Symptoms) RF: 0 Discharge Orders: Discharge Order (Routine); Ordered 05/26/22 Ordered By: Anabel Thomson Admission Data Admit Date/Time: 01/05/22 03:12 Attending Provider: Anabel Thomson Admit Provider: Donis Kim Primary Care Provider: PCP,NO Other Providers: Donis Kim ; Rickey Moralez ; Gerber Benites ; Rivera Lee ; Brice Hayward ; Brien Preciado ; Miles Oro ; Nahomy Ocasio ; Radha Irwin ; Tiffanie Sesay ; Joseph Lawson Other Interventions: Discharge Summary Assessment (RN) Last Done: 01/06/22 11:24
== END 2022-01-06 12:35 | disposition home or self-care (01) | DRG 287 ==
LOC: ED 00:53 → 1E 03:12
DX: I10 Essential (primary) hypertension; F17.210 Nicotine dependence, cigarettes, uncomplicated; E66.9 Obesity, unspecified; F41.9 Anxiety disorder, unspecified; R07.89 Other chest pain; J30.1 Allergic rhinitis due to pollen; Z91.14 Patient's other noncompliance with medication regimen; E78.5 Hyperlipidemia, unspecified; Z68.28 Body mass index [BMI] 28.0-28.9, adult